=== PATIENT | male | born 1960 | race Caucasian/White ===

== ENCOUNTER → 2018-10-05 | Outpatient (CLI) | payer OTHER ==
--- NOTE | 2018-10-05 14:55 | US ---
EXAM DESCRIPTION: Soft Tissue,Extremity: ULTRASOUND. CLINICAL HISTORY: 57 years Male Knee pain behind Left knee. COMPARISON: None Available. TECHNIQUE: Transcutaneous scanning: Trejo-scale and Doppler modes. FINDINGS: The popliteal artery is dilated over a 5.4 cm length. Transverse diameter of the outer wall is 3.0 x 2.8 cm. Echogenic clot surrounds the true lumen; true lumen demonstrates arterial flow, and measures 1.6 x 1.5 cm transverse diameter. This is consistent with an aneurysm. Luminal area stenosis is approximately 75%. Lumen diameter stenosis is approximately 46%. Mass effect on the popliteal vein. No perivascular blood flow by Doppler. No dominant solid mass or distinct cyst. No large calcifications. 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 Outer wall is 3.0 x 2.8 cm transverse diameter and inner lumen 1.6 x 1.5 cm transverse diameter. Luminal area stenosis approximately 75%. No perivascular blood flow, cyst, or solid mass. Consider vascular surgical consult. Consider bilateral lower extremity CTA. Consider duplex ultrasound evaluation of the right popliteal artery; 60-70% of popliteal artery aneurysms are bilateral. CRITICAL COMMUNICATION: The critical value was discussed directly by phone with Dr. Rich Marin at approximately 1345 hours, on 10/05/2018. Electronically signed by: Wyatt Mendieta MD 10/05/2018 2:53 PM CDT
== END ==
LOC: US 13:23
PROVIDERS: ATTEND Family Medicine
DX: I72.4 Aneurysm of artery of lower extremity (principal); M25.562 Pain in left knee

== ENCOUNTER 2019-12-03 13:35 | Emergency (ER) | payer SELFPAY ==
--- NOTE | 2019-12-03 13:39 | ED.PDOC ---
History of Present Illness - General Time Seen by Provider: 12/03/19 13:36 Source: patient, family Exam Limitations: no limitations - History of Present Illness Initial Comments: 59 yo male hx of femoral-popliteal bypass to left leg comes in with 1 days of LLE pain. Thought it was a muscle cramp, but pain wasn't going away, so wanted him evaluated. Denies chest pain, shortness of breath. no hx of clots. not currently on blood thinners. denies any injury. Pain cramping in nature, posterior calf. no recent hospitalizations/travel/immobility. no change in color in skin. does have LE numbness Occurred: yesterday Pain - Lower Extremity: severe: Left Leg Improving Factors: nothing Allergies/Adverse Reactions: Allergies Codeine Allergy (Verified 12/03/19 14:28) Home Medications: Ambulatory Orders Enalapril Maleate 20 mg PO DAILY 12/18/12 Metformin HCl [Metformin Hydrochloride] 1,000 mg PO BID 02/10/15 Atorvastatin Calcium 40 mg PO 12/03/19 Review of Systems - Review of Systems Constitutional: Denies: chills, fever EENTM: Denies: double vision, ear pain Respiratory: Denies: cough, orthopnea, short of breath Cardiology: Denies: chest pain, palpitations Gastrointestinal/Abdominal: Denies: abdominal pain, diarrhea, nausea, vomiting Genitourinary: Denies: discharge, frequency, hematuria Musculoskeletal: States: see HPI. Denies: back pain Skin: Denies: change in color, rash Neurological: States: numbness, paresthesia, tingling. Denies: headache, tremors, weakness Endocrine: Denies: unexplained weight gain, unexplained weight loss Hematologic/Lymphatic: Denies: anemia, blood clots, easy bleeding, easy bruising Past Medical History (General) - Patient Medical History Hx Seizures: No Hx Stroke: No Hx Asthma: No Hx of COPD: No Hx Cardiac Disorders: No Hx Congestive Heart Failure: No Hx Pacemaker: No Hx Hypertension: Yes Hx Diabetes: Yes - PT TOOK HIS METFORMIN THIS AM. Hx Cancer: No Hx MRSA: No - Vaccination History Hx Tetanus, Diphtheria Vaccination: Yes Hx Influenza Vaccination: No - Social History Hx Tobacco Use: No Hx Alcohol Use: No Hx Substance Use: No Hx Physical Abuse: No Hx Emotional Abuse: No - Female History Patient : No Family Medical History - Family History Mother Family History: No Known Living Status: Still Living Physical Exam - Physical Exam General Appearance: Alert, Anxious, Well Developed, Well Groomed, Well Hydrated, Well Nourished Eyes, Ears, Nose, Throat: PERRL/EOMI, normal ENT inspection Neck: non-tender, full range of motion, supple, normal inspection Cardiovascular/Respiratory: regular rate, rhythm, no M/R/G, no JVD, normal breath sounds, no respiratory distress Gastrointestinal/Abdominal: non-tender, no organomegaly, no hernia Back: normal inspection, no CVA tenderness, no vertebral tenderness Thigh/Hip: normal inspection, non-tender, no evidence of injury, normal ROM Leg: normal inspection, no evidence of injury, normal ROM, other - +calf tenderness. no erythema. distal popliteral pulses cristian symmetric and intact. left doraslis pedis pulse diminshed compared to right but present. normal motor function. no erythema Neuro/Tendon: normal motor functions, normal tendon functions, responds to pain - pain out of porportion to exam , no evidence tendon injury Mental Status: alert, oriented x 3 Skin: normal color, warm/dry Progress - Progress Progress: 12/03/19 13:55 Partial ddx: aneurysm, arterial thrombosis/emboli, dvt, muscle spasm, statin induced myopathy, compartment syndrome. will get blood work and cta to evaluate LE arterial supply. Patient states his reaction to codeine is hives. has taken morphine without issues in past. pain still 10/10 given Dilaudid x 2 CTA shows Popliteal artery aneurysm. Patent stent. no prior records for comparison. I do not see excavation. CAMILA on left 0.72. will give heparin bolus. Discussed with radiology and he states the stent is patent. Priority we get Compartment pressure, as his pain is out of control. CK mildly elevated, while this could be related to statin induced myopathy, I cannot rule out compartment syndrome. No johana pressure device available. We have attempted multiple transfers; however, multiple hospitals at capacity. Due to significant pain and unable to access lower blood flow will treat for thrombosis and diminished pulse. Heparin bolus given. Will start heparin drip. - Results/Orders Results/Orders: Laboratory Results WBC 7.3 K/mm3 (4.8-10.8) 12/03/19 13:50 RBC 5.14 M/mm3 (4.70-6.10) 12/03/19 13:50 Hgb 15.4 gm/dL (14.0-18.0) 12/03/19 13:50 Hct 42.3 % (42.0-52.0) 12/03/19 13:50 MCV 82.4 fl (80.0-94.0) 12/03/19 13:50 MCH 30.0 pg (27.0-31.0) 12/03/19 13:50 MCHC 36.4 g/dL (33.0-37.0) 12/03/19 13:50 RDW 13.5 % (11.5-14.5) 12/03/19 13:50 Plt Count 186 K/mm3 (130-400) 12/03/19 13:50 MPV 8.2 fl (7.40-10.4) 12/03/19 13:50 Absolute Neuts (auto) 4.20 K/uL (1.8-6.8) 12/03/19 13:50 Absolute Lymphs (auto) 2.30 K/uL (1.0-3.4) 12/03/19 13:50 Absolute Monos (auto) 0.60 K/uL (0.2-0.8) 12/03/19 13:50 Absolute Eos (auto) 0.10 K/uL (0.0-0.4) 12/03/19 13:50 Absolute Basos (auto) 0.10 K/uL (0.0-0.1) 12/03/19 13:50 Neutrophils % 57.7 % (42.0-78.0) 12/03/19 13:50 Lymphocytes % 31.0 % (20.0-50.0) 12/03/19 13:50 Monocytes % 8.3 % (2.0-9.0) 12/03/19 13:50 Eosinophils % 1.8 % (1.0-5.0) 12/03/19 13:50 Basophils % 1.2 % (0.0-2.0) 12/03/19 13:50 PT 12.2 SECONDS (9.0-10.9) H 12/03/19 13:50 INR 1.23 (0.9-1.15) H 12/03/19 13:50 PTT (SP) 23.0 SECONDS (21.8-31.6) 12/03/19 13:50 Sodium 137 mmol/L (135-145) 12/03/19 13:50 Potassium 4.0 mmol/L (3.6-5.0) 12/03/19 13:50 Chloride 103 mmol/L (101-111) 12/03/19 13:50 Carbon Dioxide 20 mmol/L (21-31) L 12/03/19 13:50 Anion Gap 18.0 (12-18) 12/03/19 13:50 BUN 22 mg/dL (7-18) H 12/03/19 13:50 Creatinine 0.84 mg/dL (0.6-1.3) 12/03/19 13:50 BUN/Creatinine Ratio 26.2 (10-20) H 12/03/19 13:50 Random Glucose 337 mg/dL (70-105) H 12/03/19 13:50 Serum Osmolality 290.4 mOsm/L (275-295) 12/03/19 13:50 Lactic Acid 2.1 mmol/L (0.5-2.2) 12/03/19 16:25 Calcium 9.8 mg/dL (8.4-10.2) 12/03/19 13:50 Magnesium 1.5 mg/dL (1.8-2.5) L 12/03/19 13:50 Total Bilirubin 1.5 mg/dL (0.2-1.0) H 12/03/19 13:50 AST 32 IU/L (10-42) 12/03/19 13:50 ALT 31 IU/L (10-60) 12/03/19 13:50 Alkaline Phosphatase 50 IU/L (42-121) 12/03/19 13:50 Creatine Kinase 500 IU/L (38-174) H* 12/03/19 13:50 Serum Total Protein 7.5 gm/dL (6.4-8.2) 12/03/19 13:50 Albumin 4.6 g/dl (3.2-5.5) 12/03/19 13:50 Globulin 2.9 gm/dL (2.3-3.5) 12/03/19 13:50 Albumin/Globulin Ratio 1.6 (1.1-1.9) 12/03/19 13:50 Urine Color Yellow (Yellow) 12/03/19 15:43 Urine Appearance Clear (Clear) 12/03/19 15:43 Urine pH 5.5 (4.5-7.8) 12/03/19 15:43 Ur Specific [place] 1.020 (1.005-1.030) 12/03/19 15:43 Urine Protein Negative mg/dL 12/03/19 15:43 Urine Glucose (UA) 500 mg/dL (Negative) H 12/03/19 15:43 Urine Ketones 15 mg/dL (NEGATIVE) H 12/03/19 15:43 Urine Blood Negative (Negative) 12/03/19 15:43 Urine Nitrite Negative 12/03/19 15:43 Urine Bilirubin Negative (NEGATIVE) 12/03/19 15:43 Urine Urobilinogen 0.2 mg/dL (0.2-1.0) 12/03/19 15:43 Ur Leukocyte Esterase Negative (Negative) 12/03/19 15:43 Urine RBC 0-1 /hpf 12/03/19 15:43 Urine WBC 0-1 /hpf 12/03/19 15:43 Ur Epithelial Cells 0-1 /hpf 12/03/19 15:43 Amorphous Sediment 1+ 12/03/19 15:43 Urine Bacteria 0 12/03/19 15:43 Departure - Departure Clinical Impression: Leg pain Qualifiers: Laterality: left Qualified Code(s): M79.605 - Pain in left leg Time of Disposition: 15:06 Disposition: Transfer to Hospital Departure Forms: ED Discharge - Pt. Copy, Patient Portal Self Enrollment Referrals: LEENA CALDWELL MD [Primary Care Provider] - 1-2 Days Home Medications: Ambulatory Orders Enalapril Maleate 20 mg PO DAILY 12/18/12 Metformin HCl [Metformin Hydrochloride] 1,000 mg PO BID 02/10/15 Atorvastatin Calcium 40 mg PO 12/03/19 Transfer to Outside Facility - Transfer Information Decision to Transfer Date: 12/03/19 Decision to Transfer Time: 14:44 Reason for Transfer: specialized care not available
[2019-12-03] MEDS ORDERED: MORPHINE SULFATE INJ 10 MG/ML VIAL IV ONE (13:49)
[2019-12-03] MEDS ORDERED: SODIUM CHLORIDE 0.9% 1000ML 1,000 ML IVS PRN (14:33)
[2019-12-03] MEDS ORDERED: HYDROmorphone HCL INJ 2 MG/ML VIAL IV ONE ×2 (14:34→15:55)
[2019-12-03] MEDS ORDERED: HEPARIN SODIUM (PORCINE) 5,000 U/ML VIAL IV ONE (14:57)
--- NOTE | 2019-12-03 15:06 | CT ---
PROVIDED CLINICAL HISTORY/REASON FOR EXAM: hx fem-pop bypass, LE pain TECHNIQUE: Volumetric CT angiographic data was obtained of the pelvis, and lower extremities following the administration of IV contrast utilizing the CT angiography protocol. Multiplanar reformats. 3-D MIP images also submitted. This exam was performed according to our departmental dose-optimization program, which includes automated exposure control, adjustment of the mA and/or kV according to patient size and/or use of iterative reconstruction technique. COMPARISON STUDY: None available. FINDINGS: Intrapelvic structures are unremarkable. VASCULATURE Right Common iliac: No hemodynamically significant stenosis. External iliac: No hemodynamically significant stenosis. Internal iliac:No hemodynamically significant stenosis. Left Common iliac: No hemodynamically significant stenosis. External iliac: No hemodynamically significant stenosis. Internal iliac:No hemodynamically significant stenosis. RIGHT LOWER EXTREMITY: Common femoral: No hemodynamically significant stenosis. Superficial femoral: No hemodynamically significant stenosis. Profunda femoral: No hemodynamically significant stenosis. Popliteal: Patency of the level of the knees to the tibioperoneal trunk cannot be assessed. Run off: Normal three vessel runoff. LEFT LOWER EXTREMITY: Common femoral: No hemodynamically significant stenosis. Superficial femoral: No hemodynamically significant stenosis. Profunda femoral: No hemodynamically significant stenosis. Popliteal: Popliteal artery aneurysm measuring 1.1 cm. Patent stent. Patency from the distal margin of the stent to the tibioperoneal trunk cannot be assessed. Run off: Normal three vessel runoff. IMPRESSION: 1. Normal three vessel runoff. 2. Left popliteal artery aneurysm measuring 1.1 cm. 3. Patent left popliteal stent. Electronically signed by: Ye Gallegos MD 12/03/2019 3:05 PM CDT
[2019-12-03] MEDS ORDERED: HEPARIN SODIUM (PORCINE) 5,000 U/ML VIAL ONE (15:19)
[2019-12-03] MEDS ORDERED: HEPARIN PREMIX 25,000 UNITS in PREMIX BAG 1 BAG IVS SCH (17:00)
[2019-12-03 19:50] VITALS: BP 125/82; TEMP 78.4; O2SAT 96
== END 2019-12-03 17:20 | disposition short-term general hospital (02) ==
LOC: ER 13:35
DX: M79.605 Pain in left leg (principal); I72.4 Aneurysm of artery of lower extremity; R20.2 Paresthesia of skin; E11.9 Type 2 diabetes mellitus without complications; I10 Essential (primary) hypertension; Z95.828 Presence of other vascular implants and grafts; Z79.84 Long term (current) use of oral hypoglycemic drugs; Z79.899 Other long term (current) drug therapy; Z88.5 Allergy status to narcotic agent
CPT/HCPCS: 36415; 73706; 80053; 81001; 82550; 83605; 83735; 85025; 85610; 85730; J1170; J1644; J2270; J7030